=== PATIENT | male | born 1955 | race Caucasian/White ===

== ENCOUNTER 2018-09-05 13:03 | Emergency (ER) | payer BC ==
[~2018-09-05] VITALS: Ht 175.3 cm; Wt 59.0 kg
--- NOTE | 2018-09-05 13:43 | ED Respiratory ---
General Chief Complaint: Respiratory Problems Stated Complaint: SOB Nursing Triage Note: PT PRESENTS TO ER WITH COMPLAINT OF SOA FOR 4 DAYS. PT STATES HE HAS CANCER METS TO LUNG. STATES HE CALLED TODAY AND WAS TOLD TO COME TO ER. Source: patient, family History of Present Illness Date Seen by Provider: Sep 05, 2018 Time Seen by Provider: 13:38 Initial Comments This 62-year-old white male presents with increasing shortness of breath for the last 4 days. 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 Patient has been in the care of physicians at who unfortunately have no further treatment to offer the patient. Patient's had shortness of breath without associated chest pain, fever, chills, or productive cough. The patient as requested supplemental oxygen use at home. The patient does not want any further laboratory or radiographic testing done. Allergies and Home Medications Allergies Coded Allergies: No Known Drug Allergies (Unverified , 03/16/14) Home Medications Clorazepate Dipotassium 7.5 Mg Tab, 7.5 MG PO Q8H Prescribed by: ILIA MORA on 03/21/14 1052 Folic Acid 1 Mg Tab, 1 MG PO DAILY Prescribed by: ILIA MROA on 03/21/14 105 Lactulose 10 Gm/15 Ml Syrp, 10 GM PO BID Prescribed by: ILIA MORA on 03/21/14 1052 Pantoprazole Sodium 40 Mg Tablet.dr, 40 MG PO DAILY, (Reported) Phytonadione 5 Mg Tab, 5 MG PO DAILY Prescribed by: ILIA MORA on 03/21/14 1052 Sucralfate 1 G Tablet, 1 G PO BID, (Reported) Tramadol Hcl 50 Mg Tab, 50 MG PO Q6H PRN for PAIN, (Reported) NEEDED FOR PAIN Trimethoprim/Sulfamethoxazole 1 Ea Tablet, 1 EA PO BID Prescribed by: DONALD PRITCHETT on 03/25/14 1125 [Spironolactone] 100 MG TABLET, 100 MG PO DAILY Prescribed by: ILIA MORA on 03/21/14 1052 Patient Home Medication List Home Medication List Reviewed: Yes Review of Systems Review of Systems Constitutional: No chills EENTM: No ear pain Respiratory: see HPI, short of breath Cardiovascular: No chest pain, No palpitations Gastrointestinal: No abdominal pain, No diarrhea, No vomiting Genitourinary: no symptoms reported Musculoskeletal: no symptoms reported Skin: no symptoms reported Psychiatric/Neurological: No Symptoms Reported Hematologic/Lymphatic: No Symptoms Reported Immunological/Allergic: no symptoms reported Past Gjgxedw-Vnaaji-Zyfxqt Hx Past Med/Social Hx: Reviewed Nursing Past Med/Soc Hx Patient Social History Alcohol Use: Past History Recreational Drug Use: No Type Used: Smokeless Tobacco Recent Foreign Travel: No Contact w/Someone Who Travel: No Recent Infectious Disease Expo: No Immunizations Up To Date Tetanus Booster (TDap): More than 5yrs PED Vaccines UTD: Yes Date of Pneumonia Vaccine: Jul 04, 2010 Past Medical History Surgeries: Yes (knee arthroscopy) Gallbladder, Tonsillectomy Respiratory: No Cardiac: No Neurological: No Reproductive Disorders: No Gastrointestinal: Yes (colonoscopy in 2004, GB in 2013) Ulcer Musculoskeletal: Yes (get epidurals as needed for pain in the lower back) Chronic Back Pain Endocrine: No Cancer: Yes What Type of Treatment Did You: Chemotherapy, Radiation THROAT, METS TO LUNG, BONE Psychosocial: No Integumentary: No Blood Disorders: No Family Medical History Cancer 19 MOTHER Family history: Arthritis 19 FATHER 19 MOTHER Family history: Breast disease 19 MOTHER Family history: Diabetes mellitus 19 FATHER Stroke 19 FATHER Physical Exam Vital Signs - First Documented 09/05/18 13:05 Temp 98.7 Pulse 93 Resp 20 B/P (MAP) 104/69 (81) Pulse Ox 95 O2 Delivery Room Air Capillary Refill : Less Than 3 Seconds Height: 5'9.00" Weight: 130lbs. 8.0oz. [id number]; BMI Method:Stated General Appearance: WD/WN, mild distress Eyes: Bilateral Eye Normal Inspection HEENT: normal ENT inspection Neck: non-tender Respiratory: decreased breath sounds Cardiovascular: regular rate, rhythm Gastrointestinal: normal bowel sounds, non tender Extremities: normal range of motion, non-tender Neurologic/Psychiatric: no motor/sensory deficits, alert, normal mood/affect Skin: normal color, warm/dry Progress/Results/Core Measures Suspected Sepsis Recent Fever Within 48 Hours: No Infection Criteria Present: None New/Unexplained Altered Menta: No Sepsis Screen: No Definite Risk SIRS Temperature:98.7 Pulse: 93 Respiratory Rate: 20 Blood Pressure 104 /69 Mean: 81 Results/Orders Vital Signs/I&O 09/05/18 13:05 Temp 98.7 Pulse 93 Resp 20 B/P (MAP) 104/69 (81) Pulse Ox 95 O2 Delivery Room Air Capillary Refill : Less Than 3 Seconds Blood Pressure Mean: 81 Progress Note : Time: 13:42 Progress Note The patient's sat was dramatically improved with supplemental oxygen. However just setting the patient up caused his sats fall 91. I called respiratory therapist to do oxygen walk testing for the patient. I notified Dr. Matthias Renee who will be happy to assist patient in home oxygen if he qualifies. Departure Impression Primary Impression: Hypoxia Disposition: 01 HOME, SELF-CARE Condition: Unchanged Departure-Patient Inst. Decision time for Depature: 13:44 Referrals: MATTHIAS RENEE MD (PCP/Family) Primary Care Physician Patient Instructions: Lung Cancer (DC) Add. Discharge Instructions: Home oxygen for comfort. Return if any problems or questions. Follow-up with Dr. Matthias GARCIA as needed. All discharge instructions reviewed with patient and/or family. Voiced understanding. ZACHARY DUONG MD Sep 05, 2018 13:43
[2018-09-05 14:15] VITALS: BP 104/66
== END 2018-09-05 14:15 | disposition home or self-care (01) ==
LOC: EDUNIT# 13:03 → ER 13:04
DX: R09.02 Hypoxemia (principal); C09.9 Malignant neoplasm of tonsil, unspecified; C78.00 Secondary malignant neoplasm of unspecified lung; C79.51 Secondary malignant neoplasm of bone; Z90.89 Acquired absence of other organs; Z87.19 Personal history of other diseases of the digestive system; Z92.21 Personal history of antineoplastic chemotherapy
CPT/HCPCS: 99282

== ENCOUNTER → 2018-09-05 | Outpatient (CLI) | payer BC ==
[~2018-09-05] MED LIST: CIPR500T78 PO; CLR7.5T PO; FLC1T PO; HYDR-34 PO; LCT30U PO; PANT40TA PO; PHT5T PO; SCR1T1 PO; SUCR1TAB PO; SULF-222 PO; Spironolactone PO; TRAM50TA2 PO
== END ==
LOC: RT 14:35
PROVIDERS: ATTEND Family Medicine
DX: R09.02 Hypoxemia (principal)
CPT/HCPCS: 94761